=== PATIENT | female | born 1960 | race Caucasian/White ===

== ENCOUNTER 2018-12-18 08:42 | Outpatient (CLI) | payer BC ==
--- NOTE | 2018-12-18 10:00 | ULT ---
HEPATIC ULTRASOUND WITH PATRICK SCALE COLOR FLOW AND SPECTRAL DOPPLER IMAGING: HISTORY: Elevated LFTs. FINDINGS: The liver demonstrates homogeneous echotexture without focal mass or abnormal biliary ductal dilatati on. No gallstones, gallbladder wall thickening, or pericholecystic fluid are seen. The common duct measures 4 mm in diameter. The pancreas and spleen are normal. There is a 9 x 8.5 x [address] arising from the superior pole of the right kidney. ' There is normal flow and spectral waveforms in the hepatic, portal, and splenic vasculature. IMPRESSION: 1. No evidence of hepatic mass or cholelithiasis. 2. Large complex cyst mass arising from the superior pole of the right kidney. This should be evalu ated with a CT scan (with and without IV contrast) using the renal mass protocol. POS: OFF
== END 2018-12-18 08:43 | disposition home or self-care (01) ==
LOC: BICULT 08:42
PROVIDERS: ATTEND Internal Medicine Gastroenterology
DX: R94.5 Abnormal results of liver function studies (principal); N28.1 Cyst of kidney, acquired
CPT/HCPCS: 36415; 76705; 83516

== ENCOUNTER 2018-12-30 08:18 | Outpatient (CLI) | payer BC ==
[2018-12-30] MEDS ORDERED: Iopamidol 370 76% 100 ML VIAL ONE (10:35)
--- NOTE | 2018-12-30 12:33 | CT ---
CT ABDOMEN AND PELVIS WITH AND WITHOUT CONTRAST: Date: 12/30/18 Multiple axial tomograms obtained through the abdomen and pelvis pre and post IV contrast. Postcontra st images were obtained in portal venous phase and delayed venous phase following renal protocol. INDICATION: Complex cystic masses noted involving the right kidney on recent hepatic ultrasound of 12/18/18. This exam is performed in follow-up. FINDINGS: Lung bases clear. Mild stranding or atelectasis in the right lung base. Numerous low density lesions throughout the liver, with the largest one in the mid right lobe measuri ng 1.5 cm. These appear most consistent with numerous small hepatic cysts. Spleen and pancreas unremarkable. Stomach and duodenum unremarkable. Adrenal glands normal. There is a large complex, partially septated cyst arising from the superior pole of the right kidney. There is a dense possibly partially calcified septum between a smaller cyst along the superior enrico n of this large cyst. Overall dimensions including the large cyst and the septated portion measures 1 1-12 cm craniocaudal x 9 cm AP dimension. There are other smaller cystic lesions in the right kidney, one of which is exophytic along the later al margin measuring 1.2 cm, and another inferior pole cyst measuring 1.5-2.0 cm. Several other smalle r lesions are too small to characterize. In the left kidney, there are numerous cystic lesions also seen, with the largest in the mid pole cor irma measuring 3.6 cm. Another partially septated cyst along the posterior margin measures 3.2 cm. Num erous other smaller cystic lesions in the left kidney are too small to adequately characterize. There is no hydronephrosis. No evidence of urinary tract calculus. Urinary bladder is not well distended and poorly evaluated. Small bowel loops normal caliber. Colon is nondistended throughout and appears unremarkable. Aorta no rmal caliber. No adenopathy. Images through the pelvis show evidence of hysterectomy. Collecting structures opacify on delayed sequence and appear unremarkable. 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 IMPRESSION: 1. Numerous bilateral renal cystic lesions. There is a large, septated, complex cystic mass from the superior right kidney as described above. No evidence of significant solid component or enhancing re nal mass. Benign complex cystic lesions are suspected. Follow-up is recommended to confirm stability. Suggest CT abdomen with and without contrast in 6 months to confirm stability. 2. Numerous hepatic cystic lesions are also noted as described. POS: [facility]
== END 2018-12-30 08:19 | disposition home or self-care (01) ==
LOC: CT 08:18
PROVIDERS: ATTEND Internal Medicine Gastroenterology
DX: N28.89 Other specified disorders of kidney and ureter (principal); N28.1 Cyst of kidney, acquired; K76.89 Other specified diseases of liver
CPT/HCPCS: 74178; Q9967

== ENCOUNTER 2019-09-23 12:31 | Outpatient (CLI) | payer BC ==
[~2019-09-23 12:31] MED LIST: Iopamidol 370 76% 100 ML VIAL ONE
--- NOTE | 2019-09-23 13:57 | CT ---
ABDOMEN AND PELVIC CT SCAN WITH AND WITHOUT IV CONTRAST: HISTORY: Cyst of kidney. Seven-month followup renal cyst, endometrial cancer with radiation therapy, prior hy sterectomy. COMPARISON: 12/30/2018. FINDINGS: Linear parenchymal changes are noted in both lung bases. Some of these are pleural-based with little change from prior study, evidence for some chronic change. Multiple small stable right and left lob e of liver cysts. Multiple bilateral stable renal cysts, the largest of which is septated with some thin septations and some minimal calcifications along the wall of the cyst and within the septations up to a maximal dimension of 10.6 cm. No evidence for a solid enhancing renal mass. Several of thes e circumscribed low-attenuation foci in the liver and kidneys are too small to definitively character ize. No renal hydronephrosis. Much of the mid and lower portion of the right kidney is somewhat com pressed by the large superior pole cyst. Urinary bladder appears unremarkable. No evidence for tejas opathy, abscess, or abnormal fluid collection within the abdomen or pelvis. IMPRESSION: 1. Stable liver cyst. 2. Stable bilateral renal cysts, the largest of which involves the right upper pole with some septat ions with some thin septations and some minimal cyst septation and wall calcification, but no evidenc e for a solid enhancing mass. 3. Minimal linear parenchymal changes in the lung bases. No evidence for solid enhancing renal mass . POS: [facility]
== END 2019-09-23 12:32 | disposition home or self-care (01) ==
LOC: CT 12:31
PROVIDERS: ATTEND Urology
DX: N28.1 Cyst of kidney, acquired (principal); K76.89 Other specified diseases of liver; N28.89 Other specified disorders of kidney and ureter
CPT/HCPCS: 74178; Q9967